=== PATIENT | male | born 1965 | race Caucasian/White ===

== ENCOUNTER 2016-03-04 19:24 | Emergency (ER) | payer MEDICAID ==
[2016-03-04 20:34] VITALS: BMI 37.6
[2016-03-04 20:35] VITALS: TEMP 97.8
[2016-03-04 20:37] LABS: LEUKOCYTES/URINE NEG (NEGATIVE); NITRITE/URINE NEG (NEGATIVE); URINE OCCULT BLOOD 2+ (NEG/TRACE)
[2016-03-04] MEDS ORDERED: OXYCODONE HCL 5 MG TABLET PO ONE (20:45)
[2016-03-04] MEDS ORDERED: ONDANSETRON HCL 4 MG ODT TAB PO ONE ×2 (20:45→21:28)
[2016-03-04 20:49] LABS: RBC/URINE TNTC (0-2)
--- NOTE | 2016-03-04 20:49 | EDPRACDOC ---
- General Information Chief Complaint: Back Pain Stated Complaint: RT BACK PAIN NO INJURY Time Seen by Provider: 03/04/16 20:40 Information Source: Patient Mode Of Arrival: Car Home Medications: Home Medications Insulin Detemir [Levemir] 30 units SQ DAILY 08/12/15 MetFORMIN (Immediate Release) [GLUCOPHAGE Immed Release] 1,000 mg PO BID Duloxetine HCl [Cymbalta] 30 mg PO DAILY 01/22/16 Ketorolac Tromethamine [Toradol] 10 mg PO Q6H PRN #20 tab 03/04/16 Ondansetron [Zofran Odt] 4 mg PO Q6H PRN #20 tab.rapdis 03/04/16 Oxycodone Immediate Release [Oxycodone Immediate Release (OxyIR)] 5 mg PO Q6H PRN #14 tab 03/04/16 Allergies/Adverse Reactions: Allergies Allergy/AdvReac Type Severity Reaction Status Date / Time promethazine HCl Allergy Severe MOUTH Verified 02/12/16 07:51 [From Phenergan] SWELLING tramadol HCl [From Ultram] Allergy Mild Edema-Gener Verified 02/12/16 07:51 alized methadone Allergy Rash-Genera Verified 02/12/16 07:51 lized - History of Present Illness Onset: YESTERDAY HPI: PT PRESENTS STATING HE IS HAVING RIGHT LUMBAR PAIN THAT BEGAN YESTERDAY. PT STATES THE PAIN IS SHARP, STABBING AND IS WORSE WHEN HE URINATES. PT STATES HE HAS NAUSEA. Pain Location: Reports: Right, Lumbar Pain Radiates To: Reports: None Pain Caused By: Reports: Spontaneous Circumstances: Reports: Unknown Relevant History: Denies: Abdominal aneurysm, Arthiritis, Cancer, Chronic back pain, Gallbladder disease, Pancreatitis, Pyelonephritis, Urolithiasis, UTI, None , AR, O Pain Severity: Reports: Moderate Pain Quality: Reports: Sharp, Stabbing Worsened By: Reports: Movement Associated Signs and Symptoms: Reports: Nausea ED Past Medical History - History Reviewed Yes Nurses notes reviewed and agree except as marked - Patient Medical History Cardiac History: Reports: Hypercholesterolemia Psychological History: Reports: Substance Use Disorder. Denies: Depression Systemic History: Reports: Diabetes Additional Past Medical History: CHRONIC PAIN Surgical History: Reports: Tonsillectomy/Adnoidectomy - Family Medical History Reports: Hypertension, Diabetes, Cancer, Cardiac Disorders. Denies: Stroke - Social Medical History Smoking Status: Heavy tobacco smoker (5 or more cigarettes/day or daily pipe/ cigar) Social History: Reports: Substance Use Disorder EDM Review of Systems - Review of Systems ROS Negative Except as Marked: Yes All systems reviewed and were negative except as marked - Physical Exam Constitutional: Alert (PT APPEARS UNCOMFORTABLE) Oriented to: Time, Person, Place Last recorded Vital Signs: Last Vital Signs Temp 97.8 F 03/04/16 20:33 Pulse 124 H 03/04/16 20:33 Resp 20 03/04/16 20:33 BP 140/111 H 03/04/16 20:33 Pulse Ox 97 03/04/16 20:33 Oxygen Pulse Oxygen Saturation 97 O2 Device Oxygen Flow Rate Fraction of Inspired Oxygen ( FIO2) - HEENT Head: Normal ( normocephalic) Eye Exam: Normal (PERRL, EOMI, Sclera white) Oropharynx: Normal (Pharynx:Moist without exudate,Gums-no swelling) Tympanic Membrane: Normal Nose: No Symptoms Reported (septum midline) Neck: Normal (FROM, trachea at midline) - Respiratory/Cardiovascular Respiratory: Normal - CTA (BBS clear to auscultation without adventitious sounds ) Cardiovascular: Tachycardia - GI Auscultation: Normal (NABS) Palpation: Normal (Soft,No rebound or guarding, non distended) Tenderness: Non tender Moses's Sign: Negative Rectal Exam: Deferred - Musculoskeletal Back: Normal (Non-Tender) Extremities: Normal (Normal tone, Pulses 2+ No cyanosis or edema, FROM) - Integumentary Skin: Normal, Warm, Dry Lymphatics: Normal (no adenopathy) - Neurologic Memory Impaired: Normal Motor Function: Normal (Normal tone, Pulses 2+ No cyanosis or edema, FROM) Cranial Nerve: Normal (CN II-X11 intact sensation, strength 5/5) Cerebellar: Normal Mood Description: Normal Perception: Normal ED Back Exam - Neurologic Motor Deficit: None Reflexes: Normal - Musculoskeletal Cervical: Normal Thoracic: Normal Lumbar: Normal Midline: Normal Paraspinous: Normal Straight Leg Raise: Negative Pelvis: Normal - Differential Diagnosis Musculoskeletal pain, Urinary obstruction, Urolithiasis - Results Urine Color Pale [id number] 03/04/16 20:24 Urine Clarity Clear 03/04/16 20:24 Urine pH 8.0 (5.0-8.0) 03/04/16 20:24 Ur Specific Rudyard 1.010 03/04/16 20:24 Urine Protein 1+ (NEG/TRACE) H 03/04/16 20:24 Urine Glucose (UA) 3+ (NEGATIVE) 03/04/16 20:24 Urine Ketones Neg (NEGATIVE) 03/04/16 20:24 Urine Occult Blood 2+ (NEG/TRACE) H 03/04/16 20:24 Urine Nitrite Neg (NEGATIVE) 03/04/16 20:24 Urine Bilirubin Neg (NEGATIVE) 03/04/16 20:24 Urine Urobilinogen 0.2 MG/DL (0-1) 03/04/16 20:24 Ur Leukocyte Esterase Neg (NEGATIVE) 03/04/16 20:24 Lab Results 03/04/16 20:24 Urine Color Pale [id number] Urine Clarity Clear Urine pH 8.0 Ur Specific Rudyard 1.010 Urine Protein 1+ H Urine Glucose (UA) 3+ Urine Ketones Neg Urine Occult Blood 2+ H Urine Nitrite Neg Urine Bilirubin Neg Urine Urobilinogen 0.2 Ur Leukocyte Esterase Neg Decision Time to Discharge: 22:41 - Departure Disposition: Home Condition: Stable Final Diagnosis: Renal colic on right side Instructions: Renal Colic (ED) Education/Counseling Given To: Patient Education/Counseling Given Regarding: Diagnosis, Treatment, Prognosis, Follow Up Referrals: Juan Mckinney MD [Primary Care Provider] - One Week Prescriptions: Ketorolac Tromethamine [Toradol] 10 mg PO Q6H PRN #20 tab PRN Reason: Pain Ondansetron [Zofran Odt] 4 mg PO Q6H PRN #20 tab.rapdis PRN Reason: Nausea/Vomiting Oxycodone Immediate Release [Oxycodone Immediate Release (OxyIR)] 5 mg PO Q6H PRN #14 tab PRN Reason: Pain Additional Instructions: FOLLOW UP WITH PCP NEXT WEEK. RETURN TO THE ED FOR WORSENING SYMPTOMS OR CONCERNS
[2016-03-04] MEDS ORDERED: ONDANSETRON HCL 4 MG ODT TAB ONE (21:35)
[2016-03-04] MEDS ORDERED: MORPHINE 4 MG/ML INJECTION IM ONE (22:21)
--- NOTE | 2016-03-04 22:36 | DIRPT ---
CLINICAL DATA: 50-year-old male with right flank pain. EXAM: CT ABDOMEN AND PELVIS WITHOUT CONTRAST TECHNIQUE: Multidetector CT imaging of the abdomen and pelvis was performed following the standard protocol without IV contrast. COMPARISON: CT dated 08/03/2015 FINDINGS: Evaluation of this exam is limited in the absence of intravenous contrast. The visualized lung bases are clear. No intra-abdominal free air or free fluid. The liver, gallbladder, pancreas, spleen, adrenal glands appear unremarkable. There is no hydronephrosis or nephrolithiasis on either side. Focal area cortical scarring with small cortical calcification noted in the upper pole of the right kidney. There is minimal perinephric stranding, nonspecific. Correlation with urinalysis recommended to exclude UTI. The visualized ureters appear unremarkable. The urinary bladder is partially distended. There is apparent diffuse thickening of the bladder wall which may be partly related to underdistention. Cystitis is not excluded. Correlation with urinalysis recommended. There is coarse calcification of the prostate gland. Moderate stool throughout the colon. No evidence of bowel obstruction or inflammation. Normal appendix. The abdominal aorta and IVC appear unremarkable on this noncontrast study. No portal venous gas identified. There is no adenopathy. The abdominal wall soft tissues appear unremarkable. The osseous structures are intact. IMPRESSION: No hydronephrosis or nephrolithiasis. Correlation with urinalysis recommended to exclude UTI. Constipation. No evidence of bowel obstruction or inflammation. Normal appendix. Electronically Signed By: Aayush Pederson M.D. On: 03/04/2016 22:33
[2016-03-04 22:58] VITALS: BP 150/106; PULSE 94
== END 2016-03-04 22:53 | disposition home or self-care (01) ==
LOC: EDMC 19:24
DX: N23 Unspecified renal colic (principal); E11.9 Type 2 diabetes mellitus without complications; E78.00 Pure hypercholesterolemia, unspecified; G89.29 Other chronic pain; F17.200 Nicotine dependence, unspecified, uncomplicated; Z79.4 Long term (current) use of insulin; Z79.899 Other long term (current) drug therapy; R10.9 Unspecified abdominal pain
CPT/HCPCS: 74176; 81001; 96372; 99284; J2270; J3490

== ENCOUNTER 2016-03-21 09:24 | Emergency (ER) | payer MEDICAID ==
[2016-03-21 09:30] VITALS: BMI 36.0
[2016-03-21] MEDS ORDERED: SODIUM CHLORIDE 0.9% 3 ML FLUSH FLUSH PRN (09:56)
[2016-03-21] MEDS ORDERED: MORPHINE 4 MG/ML INJECTION IV ONE (09:56)
[2016-03-21] MEDS ORDERED: ONDANSETRON HCL 4 MG/2 ML VIAL IV ONE (09:56)
[2016-03-21] MEDS ORDERED: DICYCLOMINE 10 MG/5 ML SYRUP PO ONE ×2 (09:56→11:00)
--- NOTE | 2016-03-21 10:00 | EDPRACDOC ---
- General Information Chief Complaint: Nausea,Vomiting,Diarrhea Stated Complaint: N/V/D Time Seen by Provider: 03/21/16 09:51 Information Source: Patient Mode Of Arrival: Car Home Medications: Home Medications Insulin Detemir [Levemir] 30 units SQ DAILY 08/12/15 MetFORMIN (Immediate Release) [GLUCOPHAGE Immed Release] 1,000 mg PO BID Duloxetine HCl [Cymbalta] 30 mg PO DAILY 01/22/16 Ciprofloxacin HCl [Cipro] 500 mg PO BID #20 tab 03/21/16 Dicyclomine HCl [Bentyl] 20 mg PO Q6H #30 tablet 03/21/16 Gabapentin [Neurontin] 600 mg PO TID 03/21/16 Ondansetron [Zofran Odt] 4 mg PO Q6H #20 tab.rapdis 03/21/16 Oxycodone HCl/Acetaminophen [Percocet 5-325 mg Tablet] 1 each PO TID PRN Oxycodone Immediate Release [Oxycodone Immediate Release (OxyIR)] 5 mg PO Q6H PRN #15 tab 03/21/16 Allergies/Adverse Reactions: Allergies Allergy/AdvReac Type Severity Reaction Status Date / Time promethazine HCl Allergy Severe MOUTH Verified 03/21/16 09:26 [From Phenergan] SWELLING tramadol HCl [From Ultram] Allergy Mild Edema-Gener Verified 03/21/16 09:26 alized methadone Allergy Rash-Genera Verified 03/21/16 09:26 lized - History of Present Illness Onset: 4 days HPI: PT C/O N/V/D AND LOW BACK PAIN X4 DAYS. PT STATES HE IS DIABETIC ON INSULIN AND METFORMIN STATES HIS GLUCOSE NORMALLY RUNS BETWEEN 200-300 ON A DAILY BASIS. Symptoms Occured: Reports: Spontaneous Duration: Reports: Since Onset Emesis: Reports: Bilious, Food Particles Recent: Reports: None Pain Quality: Reports: Cramping (INTERMITTENT) Pain Severity: Moderate Pain Location: Reports: Diffuse (INTERMITTENT) Relevant History of: Reports: Diabetes Associated Signs and Symptoms: Reports: Nausea, Vomiting, Diarrhea Oral Intake: Decreased Urinary Output: Normal ED Past Medical History - History Reviewed Yes Nurses notes reviewed and agree except as marked Travel Outside of [place] in the Last 3 Months?: No - Patient Medical History Cardiac History: Reports: Hypercholesterolemia Psychological History: Denies: Depression Systemic History: Reports: Diabetes Additional Past Medical History: CHRONIC PAIN Surgical History: Reports: Tonsillectomy/Adnoidectomy - Family Medical History Reports: Hypertension, Diabetes, Cancer, Cardiac Disorders. Denies: Stroke - Social Medical History Smoking Status: Heavy tobacco smoker (5 or more cigarettes/day or daily pipe/ cigar) ETOH: None Substance Abuse: None Lives With: Other Lives In: Home EDM Review of Systems - Review of Systems ROS Negative Except as Marked: Yes All systems reviewed and were negative except as marked Constitutional: No Symptoms Reported. negative: Fever, Chills, Weakness, Fatigue, Loss of Appetite Eyes: No Symptoms Reported. negative: Redness, Blurred Vision, Double Vision, Discharge, Pain, Light Sensitive, Photophobia Ears: No Symptoms Reported. negative: Pain, Hearing Loss, Drainage, Ear Pulling Throat: No Symptoms Reported. negative: Pain, Swelling Nose: No Symptoms Reported. negative: Congestion, Bleeding, Discharge, Injection, Swelling, Deformity, Ecchymosis, Tender, Abrasion, Laceration Mouth: No Symptoms Reported. negative: Pain, Drooling Respiratory: No Symptoms Reported. negative: Cough, Brassy Cough, Barky Cough, Shortness of Breath, Wheezing, Hemoptysis Cardiovascular: No Symptoms Reported. negative: Chest Pain, Palpitations, Syncope, Edema, Orthopnea, PND, Skin Mottling, Cyanosis Gastrointestinal: Diarrhea, Nausea, Pain, Vomiting. negative: Constipation, Formula Intolerance, Melena Genitourinary: No Symptoms Reported. negative: Dysuria, Hematuria, Frequency, Discharge, Bleeding, Testicular Pain, Neurological: No Symptoms Reported. negative: Headache, Dizziness, Seizure, Numbness, Weakness, Speech Difficulty, Gait Difficulty Musculoskeletal: No Symptoms Reported. negative: Neck, Chestwall, Ribs, Back, Shoulder, Arm, Elbow, Forearm, Wrist, Hand, Pelvis, Hip, Femur, Knee, Leg, Ankle , Foot Integumentary: No Symptoms Reported. negative: Itching, Rash, Bruising, Wound Allergic/Immunologic: No Symptoms Reported. negative: Hives, Itching Hematologic: No Symptoms Reported. negative: Lymphadenopathy, Easy Bruising, Easy Bleeding Endocrine: No Symptoms Reported. negative: Weight Gain, Weight Loss Psychiatric: No Symptoms Reported. negative: Anxiety, Depression, Hallucinations, Insomnia, Suicidal - Physical Exam Constitutional: Alert (Awake), No apparent distress Oriented to: Time, Person, Place Last recorded Vital Signs: Last Vital Signs Temp 97.7 F 03/21/16 09:26 Pulse 91 03/21/16 09:26 Resp 20 03/21/16 09:26 BP 154/88 03/21/16 09:26 Pulse Ox 96 03/21/16 09:26 Oxygen Pulse Oxygen Saturation 96 O2 Device Room Air Oxygen Flow Rate Fraction of Inspired Oxygen ( FIO2) - HEENT Head: Normal ( normocephalic) Eye Exam: Normal (PERRL, EOMI, Sclera white) Oropharynx: Membranes Dry Tympanic Membrane: Normal ENT EAC: Normal TMJ: Normal Nose: No Symptoms Reported (septum midline) Neck: Normal (FROM, trachea at midline) - Respiratory/Cardiovascular Respiratory: Diminished (DUE TO BODY HABITUS) Cardiovascular: Normal (RRR without murmur, gallop or rub) - GI Auscultation: Normal (NABS) Palpation: Normal (Soft,No rebound or guarding, non distended) Tenderness: Diffuse, Mild Moses's Sign: Negative - Bladder: Normal - Musculoskeletal Back: Normal (Non-Tender) Extremities: Normal (Normal tone, Pulses 2+ No cyanosis or edema, FROM) - Integumentary Skin: Normal, Warm, Dry Lymphatics: Normal (no adenopathy) - Neurologic Memory Impaired: Normal Motor Function: Normal (Normal tone, Pulses 2+ No cyanosis or edema, FROM) Cranial Nerve: Normal (CN II-X11 intact sensation, strength 5/5) Cerebellar: Normal Mood Description: Normal Perception: Normal - Differential Diagnosis Diabetes/DKA, Diarrhea Bacterial, Diarrhea Viral, Gastroenteritis, Urinary tract infection - Results 03/21/16 09:55 03/21/16 09:55 - EKG EKG #1 EKG Time: 10:13 -: Yes EKG interpreted by me Rate: bpm: 89 Lucas: Normal Rhythm: NSR Block: None Hypertrophy: None ST: Normal - Departure Disposition: Home Condition: Stable Final Diagnosis: Nausea and vomiting, Dehydration Diarrhea Qualifiers: Diarrhea type: unspecified type Qualified Code(s): R19.7 - Diarrhea, unspecified Uncontrolled diabetes mellitus Qualifiers: Diabetes mellitus type: type 1 Diabetes mellitus complication status: without complication Qualified Code(s): E10.9 - Type 1 diabetes mellitus without complications Instructions: Acute Diarrhea (ED), Acute Nausea and Vomiting (ED), Dehydration (ED) Education/Counseling Given To: Patient Education/Counseling Given Regarding: Diagnosis, Treatment, Prognosis, Follow Up Referrals: Juan Mckinney MD [Primary Care Provider] - One Week Prescriptions: New Ciprofloxacin HCl [Cipro] 500 mg PO BID #20 tab Dicyclomine HCl [Bentyl] 20 mg PO Q6H #30 tablet Ondansetron [Zofran Odt] 4 mg PO Q6H #20 tab.rapdis Oxycodone Immediate Release [Oxycodone Immediate Release (OxyIR)] 5 mg PO Q6H PRN #15 tab PRN Reason: Pain No Action MetFORMIN (Immediate Release) [GLUCOPHAGE Immed Release] 1,000 mg PO BID Insulin Detemir [Levemir] 30 units SQ DAILY Duloxetine HCl [Cymbalta] 30 mg PO DAILY Gabapentin [Neurontin] 600 mg PO TID Oxycodone HCl/Acetaminophen [Percocet 5-325 mg Tablet] 1 each PO TID PRN PRN Reason: Pain Additional Instructions: INCREASE PO FLUIDS, FOLLOW UP WITH PRIMARY CARE DOCTOR. RETURN FOR WORSE OR DIFFERENT SYMPTOMS.
[2016-03-21 10:10] LABS: AUTOMATED BASOPHIL 0.8 % (0-2); AUTOMATED EOSINOPHIL 2.8 % (0-5); AUTOMATED MONOCYTE 8.1 % (3-10); AUTOMATED NEUTROPHIL 62.3 % (45-76); MPV 8.4 fL (7.4-10.4)
[2016-03-21] MEDS: NS 1,000 ML IV SCH ×2 (10:12→11:48)
[2016-03-21 10:13] LABS: VENOUS BEb -0.6 (+/- 2); VENOUS TCO2 26.8 MMOL/L (23-27)
[2016-03-21 10:18] LABS: LEUKOCYTES/URINE NEG (NEGATIVE); NITRITE/URINE NEG (NEGATIVE); URINE OCCULT BLOOD NEG (NEG/TRACE); WBC/URINE 0-2 (0-2)
[2016-03-21 10:24] LABS: BLOOD UREA NITROGEN 27 MG/DL (9-20); CALCIUM 9.6 MG/DL (8.4-10.2); CALCULATED OSMOLALITY 272 MOs/Kg (270-290); CHLORIDE 95 mEq/L (98-107); GLUCOSE 295 mg/dL (70-99); SODIUM LEVEL 133 mEq/L (137-146); TOTAL PROTEIN 7.6 G/DL (6.3-8.2)
[2016-03-21] MEDS ORDERED: NS 1,000 ML IV ONE (10:26)
--- NOTE | 2016-03-21 10:47 | DIRPT ---
CLINICAL DATA: Vomiting, hypertension, low back pain for 4 days, nausea EXAM: PORTABLE CHEST 1 VIEW COMPARISON: 07/14/2015 FINDINGS: Cardiomediastinal silhouette is stable. No acute infiltrate or pleural effusion. No pulmonary edema. Degenerative changes lower thoracic spine. IMPRESSION: No active disease. Electronically Signed By: Erich Alexander M.D. On: 03/21/2016 10:45
[2016-03-21] MEDS ORDERED: OXYCODONE HCL 5 MG TABLET PO ONE (11:18)
[2016-03-21 12:50] VITALS: BP 136/78; PULSE 85; TEMP 97.4
[2016-03-21] MEDS ORDERED: SODIUM CHLORIDE 0.9% 3 ML FLUSH FLUSH SCH (18:00)
== END 2016-03-21 12:18 | disposition home or self-care (01) ==
LOC: ED 09:24
DX: R11.2 Nausea with vomiting, unspecified (principal); R19.7 Diarrhea, unspecified; E10.9 Type 1 diabetes mellitus without complications
CPT/HCPCS: 36415; 71010; 80053; 81001; 82803; 83605; 83690; 85025; 93005; 96361; 96374; 96375; 99284; J2270; J2405; J3490